=== PATIENT | female | born 1970 | race African-American/Black ===

== ENCOUNTER 2017-03-20 15:04 | Emergency (ER) | payer OTHER ==
--- NOTE | 2017-03-20 16:07 | ER Document Report ---
ED Medical Screen (RME) - General Mode of Arrival: Ambulatory Information source: Patient TRAVEL OUTSIDE OF THE [place] IN LAST 30 DAYS: No <CHUCKY GALDAMEZ - Last Filed: 03/20/17 16:00> <ASHLEIGH YARBROUGH - Last Filed: 03/21/17 14:41> - General Chief Complaint: Abdominal Pain Stated Complaint: PAIN ON RIGHT SIDE Time Seen by Provider: 03/20/17 16:00 Notes: 46 yo female presents to ed for pain in the right upper abdomen for the past 5 day intermittently, sharp at times dull cramping and moves form side to side and upper and down the abdomen. Nausea no vomiting. 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 This patient was assessed in PIT and will be seen by another provider for compete H&P and treatment. (CHUCKY GALDAMEZ) - Related Data Allergies/Adverse Reactions: hydrocodone bitartrate [From Vicodin] Allergy (Verified 03/20/17 16:14) Penicillins Allergy (Verified 03/20/17 16:14) clopidogrel bisulfate [From Plavix] Adverse Reaction (Verified 03/20/17 16:14) "liver failure" Past Medical History - Past Medical History Cardiac Medical History: Reports: Hx Heart Attack - 2007, Hx Hypertension Endocrine Medical History: Reports: Hx Diabetes Mellitus Type 2 Renal/ Medical History: Denies: Hx Peritoneal Dialysis Past Surgical History: Reports: Hx Thyroid Surgery <CHUCKY GALDAMEZ - Last Filed: 03/20/17 16:00> Course - Laboratory Result Diagrams: 03/20/17 16:51 03/20/17 16:51 <ASHLEIGH YARBROUGH - Last Filed: 03/21/17 14:41> - Vital Signs Vital signs: Temp Pulse Resp BP Pulse Ox 97.9 F 87 16 110/76 98 03/20/17 23:12 03/20/17 23:12 03/20/17 23:12 03/20/17 23:12 03/20/17 23:12 - Laboratory Laboratory results interpreted by me: 03/20/17 03/20/17 03/20/17 16:51 16:51 16:51 WBC 11.0 H ALT 56 H Creatine Kinase 154 H Doctor's Discharge <CHUCKY GALDAMEZ - Last Filed: 03/20/17 16:00> <ASHLEIGH YARBROUGH - Last Filed: 03/21/17 14:41> - Discharge Clinical Impression: Abdominal pain, Gallbladder disease Condition: Stable Disposition: HOME, SELF-CARE Instructions: Gallbladder Disease ([facility]) Prescriptions: Oxycodone HCl/Acetaminophen [Percocet 5-325 mg Tablet] 1 - 2 tab PO Q4H PRN #15 tablet PRN Reason: Promethazine HCl [Phenergan 25 mg Tablet] 1 - 2 tab PO Q6H PRN #15 tablet PRN Reason: Referrals: CORINNE AMIN MD [Primary Care Provider] - Follow up as needed LISSETT AUGUSTE MD [ACTIVE STAFF] - Follow up tomorrow
[2017-03-20 17:13] LABS: ABSOLUTE EOSINOPHILS # (AUTO) 0.1 10^3/uL (0.0-0.6); ABSOLUTE LYMPHOCYTES (AUTO) 3.5 10^3/uL (0.5-4.7); ABSOLUTE MONOCYTES (AUTO) 0.8 10^3/uL (0.1-1.4); ABSOLUTE NEUT (AUTO) 6.7 10^3/uL (1.7-8.2); BASOPHILS % (AUTO) 0.3 % (0-2); EOSINOPHILS % (AUTO) 0.5 % (0-6); HEMATOCRIT 44.5 % (36.0-47.0); HEMOGLOBIN 14.8 g/dL (12.0-15.5); HGB HCT DIFFERENCE -0.1; LYMPHOCYTES % (AUTO) 31.5 % (13-45); MEAN CORPUSCULAR HEMOGLOBIN 31.1 pg (27.0-33.4); MEAN CORPUSCULAR HGB CONC 33.2 g/dL (32.0-36.0); MEAN CORPUSCULAR VOLUME 94 fl (80-97); MONOCYTES % (AUTO) 7.1 % (3-13); RED BLOOD COUNT 4.75 10^6/uL (3.72-5.28); RED CELL DISTRIBUTION WIDTH 13.3 % (11.5-14.0); SEGMENTED NEUTROPHILS % (AUTO) 60.6 % (42-78)
[2017-03-20 17:19] LABS: APPEARANCE,URINE CLEAR; BILIRUBIN,URINE NEGATIVE (NEGATIVE); GLUCOSE, URINE NEGATIVE (NEGATIVE); KETONES,URINE NEGATIVE (NEGATIVE); LEUKOCYTE ESTERASE,URINE NEGATIVE (NEGATIVE); NITRITE,URINE NEGATIVE (NEGATIVE); PROTEIN,URINE NEGATIVE (NEGATIVE); UROBILINOGEN,URINE NEGATIVE mg/dL (<2.0)
[2017-03-20 17:28] LABS: BACTERIA,URINE 2+ /HPF
[2017-03-20 17:30] LABS: ALANINE AMINOTRANSFERASE 56 U/L (9-52); ALBUMIN 4.4 g/dL (3.5-5.0); ALKALINE PHOSPHATASE 110 U/L (38-126); ANION GAP 14 (5-19); ASPARTATE AMINO TRANSFERASE 36 U/L (14-36); BILIRUBIN,DIRECT 0.3 mg/dL (0.0-0.4); BILIRUBIN,TOTAL 0.6 mg/dL (0.2-1.3); BLOOD UREA NITROGEN 8 mg/dL (7-20); CALCIUM 9.5 mg/dL (8.4-10.2); CARBON DIOXIDE 23 mmol/L (22-30); CHLORIDE 106 mmol/L (98-107); CREATININE RESULT 0.82 mg/dL (0.52-1.25); GLUCOSE 109 mg/dL (75-110); LIPASE 114.5 U/L (23-300); POTASSIUM 4.3 mmol/L (3.6-5.0); SODIUM 143.1 mmol/L (137-145)
[2017-03-20] MEDS ORDERED: OXYCODONE HCL IR 5 MG TABLET PO ONE (18:14)
[2017-03-20] MEDS ORDERED: ONDANSETRON 4 MG TAB.RAPDIS PO ONE (18:14)
--- NOTE | 2017-03-20 18:55 | ER Document Report ---
ED General - General Chief Complaint: Abdominal Pain Stated Complaint: PAIN ON RIGHT SIDE Time Seen by Provider: 03/20/17 16:00 Mode of Arrival: Ambulatory Information source: Patient Notes: 46-year-old female presents with complaints of right upper quadrant abdominal pain of one week duration associated with nausea. Patient last ate yesterday denies any fevers or chills TRAVEL OUTSIDE OF THE [place] IN LAST 30 DAYS: No - HPI Onset: Last week Onset/Duration: Persistent Quality of pain: Achy Severity: Mild Pain Level: 1 Associated symptoms: Nausea Exacerbated by: Denies Relieved by: Denies Similar symptoms previously: No Recently seen / treated by doctor: No - Related Data Allergies/Adverse Reactions: hydrocodone bitartrate [From Vicodin] Allergy (Verified 03/20/17 16:14) Penicillins Allergy (Verified 03/20/17 16:14) clopidogrel bisulfate [From Plavix] Adverse Reaction (Verified 03/20/17 16:14) "liver failure" Past Medical History - General Information source: Patient - Social History Smoking Status: Never Smoker Cigarette use (# per day): No Chew tobacco use (# tins/day): No Smoking Education Provided: No Family History: Reviewed & Not Pertinent Patient has suicidal ideation: No Patient has homicidal ideation: No - Past Medical History Cardiac Medical History: Reports: Hx Heart Attack - 2007, Hx Hypertension Endocrine Medical History: Reports: Hx Diabetes Mellitus Type 2 Renal/ Medical History: Denies: Hx Peritoneal Dialysis Past Surgical History: Reports: Hx Hysterectomy, Hx Thyroid Surgery Review of Systems - Review of Systems Notes: REVIEW OF SYSTEMS: CONSTITUTIONAL : Denies fever, chills, or sweats. Denies recent illness. EENT: Denies eye, ear, throat, or mouth pain or symptoms. Denies nasal or sinus congestion or discharge. Denies throat, tongue, or mouth swelling or difficulty swallowing. CARDIOVASCULAR: Denies chest pain. Denies palpitations or racing or irregular heart beat. Denies ankle edema. RESPIRATORY: Denies cough, cold, or chest congestion. Denies shortness of breath, difficulty breathing, or wheezing. GASTROINTESTINAL: Admits to abdominal pain nausea GENITOURINARY: Denies difficulty urinating, painful urination, burning, frequency, blood in urine, or discharge. FEMALE GENITOURINARY: Denies vaginal bleeding, heavy or abnormal periods, irregular periods. Denies vaginal discharge or odor. MUSCULOSKELETAL: Denies back or neck pain or stiffness. Denies joint pain or swelling. SKIN: Denies rash, lesions or sores. HEMATOLOGIC : Denies easy bruising or bleeding. LYMPHATIC: Denies swollen, enlarged glands. NEUROLOGICAL: Denies confusion or altered mental status. Denies passing out or loss of consciousness. Denies dizziness or lightheadedness. Denies headache. Denies weakness or paralysis or loss of use of either side. Denies problems with gait or speech. Denies sensory loss, numbness, or tingling. Denies seizures. PSYCHIATRIC: Denies anxiety or stress. Denies depression, suicidal ideation, or homicidal ideation. ALL OTHER SYSTEMS REVIEWED AND NEGATIVE. PHYSICAL EXAMINATION: GENERAL: Well-appearing, well-nourished and in no acute distress. HEAD: Atraumatic, normocephalic. EYES: Pupils equal round and reactive to light, extraocular movements intact, conjunctiva are normal. ENT: Nares patent, oropharynx clear without exudates. Moist mucous membranes. NECK: Normal range of motion, supple without lymphadenopathy LUNGS: Breath sounds clear to auscultation bilaterally and equal. No wheezes rales or rhonchi. HEART: Regular rate and rhythm without murmurs ABDOMEN: Soft, tender in the right upper quadrant no rebound or guarding Female : deferred Musculoskeletal: Normal range of motion, no pitting or edema. No cyanosis. NEUROLOGICAL: Cranial nerves grossly intact. Normal speech, normal gait. Normal sensory, motor exams PSYCH: Normal mood, normal affect. SKIN: Warm, Dry, normal turgor, no rashes or lesions noted. Dictation was performed using [employer] (formerly [employer]) voice recognition software Physical Exam - Vital signs Vitals: Temp Pulse Resp BP Pulse Ox 98.2 F 108 H 18 127/96 H 98 03/20/17 15:14 03/20/17 15:14 03/20/17 15:14 03/20/17 15:14 03/20/17 15:14 Course - Re-evaluation Re-evalutation: 03/20/17 18:55 Ultrasound is pending 03/20/17 20:31 Ultrasound noted no stones or gallbladder disease 03/20/17 20:43 Dr. Morales does not believe this is gallbladder related, Dr. Camarena defers on admission CT ordered 03/21/17 02:39 CT noted no significant abnormality, patient wishes to be discharged, I will discharge her with understand that she follow-up with a surgeon for possible gallbladder disease After performing a Medical Screening Examination, I estimate there is LOW risk for ACUTE APPENDICITIS, BOWEL OBSTRUCTION, ACUTE CHOLECYSTITIS, PERFORATED DIVERTICULITIS, INCARCERATED HERNIA, PANCREATITIS, PELVIC INFLAMMATORY DISEASE, PERFORATED ULCER, ECTOPIC , or TUBO-OVARIAN ABSCESS, thus I consider the discharge disposition reasonable. Also, there is no evidence or peritonitis , sepsis, or toxicity. I have reevaluated this patient multiple times and no significant life threatening changes are noted. The patient and I have discussed the diagnosis and risks, and we agree with discharging home with close follow-up with the understanding that symptoms and presentations can change. We also discussed returning to the Emergency Department immediately if new or worsening symptoms occur. We have discussed the symptoms which are most concerning (e.g., bloody stool, fever, changing or worsening pain, vomiting) that necessitate immediate return. - Vital Signs Vital signs: Temp Pulse Resp BP Pulse Ox 97.9 F 87 16 110/76 98 03/20/17 23:12 03/20/17 23:12 03/20/17 23:12 03/20/17 23:12 03/20/17 23:12 - Laboratory Result Diagrams: 03/20/17 16:51 03/20/17 16:51 Laboratory results interpreted by me: 03/20/17 03/20/17 03/20/17 16:51 16:51 16:51 WBC 11.0 H ALT 56 H Creatine Kinase 154 H - Diagnostic Test Radiology reviewed: Image reviewed, Reports reviewed - No acute abnormality noted on ultrasound or CT Discharge - Discharge Clinical Impression: Disorder of gallbladder Abdominal pain Qualifiers: Abdominal location: right upper quadrant Qualified Code(s): R10.11 - Right upper quadrant pain Condition: Stable Disposition: HOME, SELF-CARE Instructions: Gallbladder Disease ([facility]) Prescriptions: Oxycodone HCl/Acetaminophen [Percocet 5-325 mg Tablet] 1 - 2 tab PO Q4H PRN #15 tablet PRN Reason: Promethazine HCl [Phenergan 25 mg Tablet] 1 - 2 tab PO Q6H PRN #15 tablet PRN Reason: Referrals: CORINNE AMIN MD [Primary Care Provider] - Follow up as needed LISSETT AUGUSTE MD [ACTIVE STAFF] - Follow up tomorrow
--- NOTE | 2017-03-20 19:51 | RADIOLOGY REPORT (SQ) ---
EXAM DESCRIPTION: U/S ABDOMEN LIMITED W/O DOP COMPLETED DATE/TIME: 03/20/2017 7:06 pm REASON FOR STUDY: RUQ pain COMPARISON: None. TECHNIQUE: Dynamic and static grayscale images acquired of the abdomen and recorded on PACS. Additio nal selected color Doppler and spectral images recorded. LIMITATIONS: None. FINDINGS: PANCREAS: No masses. Visualized pancreatic duct normal caliber. LIVER: No masses. Echotexture normal. LIVER VASCULATURE: Normal directional flow of the main portal vein and hepatic veins. GALLBLADDER: No stones. Normal wall thickness. No pericholecystic fluid. ULTRASOUND-DETECTED TOLBERT'S SIGN: Negative. INTRAHEPATIC DUCTS AND COMMON DUCT: CBD and intrahepatic ducts normal caliber. No filling defects. INFERIOR VENA CAVA: Normal flow. AORTA: No aneurysm. RIGHT KIDNEY: Normal size. Normal echogenicity. No solid or suspicious masses. No hydronephrosis. No calcifications. PERITONEAL AND RIGHT PLEURAL SPACE: No ascites or effusions. OTHER: No other significant findings. IMPRESSION: No abnormality identified. TECHNICAL DOCUMENTATION: JOB ID: [id number] [employer]- All Rights Reserved
[2017-03-20] MEDS ORDERED: NORMAL SALINE 1000 ML 1,000 ML IV ONE (20:32)
--- NOTE | 2017-03-20 22:19 | RADIOLOGY REPORT (SQ) ---
EXAM DESCRIPTION: CT ABD/PELVIS NO ORAL OR IV COMPLETED DATE/TIME: 03/20/2017 9:29 pm REASON FOR STUDY: abd pain COMPARISON: 10/16/2015 TECHNIQUE: CT scan of the abdomen and pelvis performed without intravenous or oral contrast. Images reviewed with lung, soft tissue, and bone windows. Reconstructed coronal and sagittal MPR images revi ewed. All images stored on PACS. All CT scanners at this facility use dose modulation, iterative reconstruction, and/or weight based d osing when appropriate to reduce radiation dose to as low as reasonably achievable (ALARA). [facility]: Dose Right [facility]: CareDose [facility]: Dose Right [facility]: Teradose 4D [facility]: [employer]School RADIATION DOSE: 17.25mGy. LIMITATIONS: None. FINDINGS: LOWER CHEST: No significant findings. No nodules or infiltrates. NON-CONTRASTED LIVER, SPLEEN, ADRENALS: Similar low-density nodularity of the adrenal glands, left gr eater than right. Evaluation limited by lack of IV contrast. No acute findings. PANCREAS: No masses. No peripancreatic inflammatory changes. GALLBLADDER: No identified stones by CT criteria. No inflammatory changes to suggest cholecystitis. RIGHT KIDNEY AND URETER: No suspicious masses. Assessment limited by lack of IV contrast. No signif icant calcifications. No hydronephrosis or hydroureter. LEFT KIDNEY AND URETER: No suspicious masses. Assessment limited by lack of IV contrast. 3 mm lower pole parenchymal stone. No hydronephrosis or hydroureter. AORTA AND RETROPERITONEUM: No aneurysm. No retroperitoneal masses or adenopathy. BOWEL AND PERITONEAL CAVITY: No obvious masses or inflammatory changes. No free fluid. APPENDIX: Normal. PELVIS, BLADDER, AND ABDOMINAL WALL:Prior hysterectomy. No free fluid. Bladder normal. BONES: No acute findings. OTHER: No other significant finding. IMPRESSION: NO ACUTE PROCESS IN THE ABDOMEN OR PELVIS. TECHNICAL DOCUMENTATION: JOB ID: [id number] Quality ID # [id number]: Final reports with documentation of one or more dose reduction techniques (e.g., Au tomated exposure control, adjustment of the mA and/or kV according to patient size, use of iterative reconstruction technique) 2010 [employer]- All Rights Reserved
[2017-03-20 23:28] VITALS: BP 110/76
[2017-03-20 23:55] LABS: CREATINE KINASE MB 1.06 ng/mL (<4.55)
[2017-03-20 23:56] LABS: TROPONIN I < 0.012 ng/mL
--- NOTE | 2017-03-21 00:14 | CONSULTATION REPORT E ---
Consultation Report NAME: CLAUDETTE EAST : 1970 AGE: 46Y DATE: 03/20/2017 TO: GUSTAVO CARDOZA M.D. FROM: TALHA ROBERTSON Requesting Physician REASON FOR CONSULTATION: Patient with right upper quadrant and epigastric pains with nausea. HISTORY OF PRESENT ILLNESS: This is a 46-year-old female who has been complaining of nausea and right upper quadrant and epigastric pains. She claims the pains are more from "*------*." She has been nauseated. She had an ultrasound of the gallbladder done in the ER which showed no gallstones and no thickened gallbladder wall. I examined her at that time and the physical findings showed mild tenderness in the right upper quadrant and epigastric area on deep palpation. The rest of the abdomen is soft and nontender. She then had a CAT scan of the abdomen which was essentially normal. She was then able to tolerate liquids and subsequently discharged from the emergency room to be followed up in the surgical clinic. FINAL IMPRESSION: Abdominal pain, etiology possibly due to gastroenteritis, rule out cardiac. The patient had a history of OK at age 36 and had coronary stents placed. She is on Plavix. Cardiac jimenez, she was cleared by the ER physician. DICTATING PHYSICIAN: GUSTAVO CARDOZA M.D. [id number] PHY#: [id number] ID: [id number] JOB#: [id number] ACCT: [id number] cc:GUSTAVO CARDOZA M.D. >
== END 2017-03-20 23:12 | disposition home or self-care (01) ==
LOC: ER 15:04
DX: R10.11 Right upper quadrant pain (principal); K82.9 Disease of gallbladder, unspecified; R11.0 Nausea; I10 Essential (primary) hypertension; E11.9 Type 2 diabetes mellitus without complications; Z88.0 Allergy status to penicillin; Z88.6 Allergy status to analgesic agent; Z90.710 Acquired absence of both cervix and uterus; Z79.02 Long term (current) use of antithrombotics/antiplatelets; I25.2 Old myocardial infarction
CPT/HCPCS: 99284; 36415; 82553; 82550; 83690; 85025; 80053; 81001; 84484; 76705; 74176; S0119

== ENCOUNTER → 2017-06-24 | Outpatient (CLI) | payer OTHER ==
--- NOTE | 2017-06-24 14:55 | RADIOLOGY REPORT (SQ) ---
EXAM DESCRIPTION: NM HIDA SCAN WITH CCK COMPLETED DATE/TIME: 06/24/2017 2:20 pm REASON FOR STUDY: EPIGASTRIC PAIN (R10.13) R10.13 EPIGASTRIC PAIN COMPARISON: None. RADIONUCLIDE AND DOSE: DOSAGE RADIONUCLIDE: 5 millicuries Tc99m Mebrofenin. DOSAGE CCK: 2 micrograms. DOSAGE MORPHINE: Not required. The route of agent administration: Intravenous TECHNIQUE: Serial imaging right upper quadrant up to 60 minutes following injection of radionuclide. CCK injected after gallbladder visualized. LIMITATIONS: None. FINDINGS: LIVER: Normal visualization without areas of photopenia. INTRAHEPATIC BILE DUCTS: Normal size and no delay in visualization. COMMON BILE DUCT: Normal without dilatation. GALLBLADDER: Normal visualization. Calculated ejection fraction of 29%. Normal range is greater th an 35%. PHYSICAL RESPONSE: Patients presenting complaint was not reproduced. OTHER: No other significant finding. IMPRESSION: Mildly abnormal gallbladder ejection fraction of 29% where 35% or greater is considered normal. TECHNICAL DOCUMENTATION: JOB ID: [id number] [email or web address]- All Rights Reserved
== END ==
LOC: RAD 12:09
PROVIDERS: ATTEND Internal Medicine Gastroenterology
DX: R10.13 Epigastric pain (principal)
CPT/HCPCS: 78227; A9537; Q9969; J2805

== ENCOUNTER 2019-03-10 20:36 | Emergency (ER) | payer OTHER ==
[2019-03-10] MEDS ORDERED: ACETAMINOPHEN 325 MG TABLET PO ONE (21:46)
--- NOTE | 2019-03-10 21:49 | ER Document Report ---
ED Breast Problem - General Chief Complaint: Breast Lump Stated Complaint: BREAST PAIN Time Seen by Provider: 03/10/19 21:40 Primary Care Provider: SILVER GIL MD [Primary Care Provider] - Follow up as needed Notes: Patient is a 48-year-old female presents the emergency department with a chief complaint of left breast pain and redness. She states that her pain started yesterday and she noticed some redness that was only a pea-sized amount and today she states that the size has tripled. The redness is around her nipple. She also has complaints of chest pain, and she has a history of an MA in the past. She states that the pain below her breast feels similar to her MA she had before. Exam: Erythema noted around the areola. I have greeted and performed a rapid initial assessment of this patient. A comprehensive ED assessment and evaluation of the patient, analysis of test results and completion of medical decision making process will be conducted by an additional ED providers. TRAVEL OUTSIDE OF THE [place] IN LAST 30 DAYS: No - Related Data Allergies/Adverse Reactions: hydrocodone bitartrate [From Vicodin] Allergy (Verified 03/20/17 16:14) Penicillins Allergy (Verified 03/20/17 16:14) clopidogrel bisulfate [From Plavix] Adverse Reaction (Verified 03/20/17 16:14) "liver failure" Past Medical History - Social History Smoking Status: Current Every Day Smoker Family History: Reviewed & Not Pertinent Patient has suicidal ideation: No Patient has homicidal ideation: No - Past Medical History Cardiac Medical History: Reports: Hx Heart Attack - 2007, Hx Hypertension Endocrine Medical History: Reports: Hx Diabetes Mellitus Type 2 Renal/ Medical History: Denies: Hx Peritoneal Dialysis Past Surgical History: Reports: Hx Hysterectomy, Hx Thyroid Surgery Physical Exam - Vital signs Vitals: Temp Pulse Resp BP Pulse Ox 98.1 F 102 H 16 140/86 H 98 03/10/19 20:55 03/10/19 20:55 03/10/19 20:55 03/10/19 20:55 03/10/19 20:55 Course - Vital Signs Vital signs: Temp Pulse Resp BP Pulse Ox 98.1 F 102 H 16 140/86 H 98 03/10/19 20:55 03/10/19 20:55 03/10/19 20:55 03/10/19 20:55 03/10/19 20:55 Discharge - Discharge Referrals: SILVER GIL MD [Primary Care Provider] - Follow up as needed
--- NOTE | 2019-03-10 21:50 | ER Document Report ---
ED Medical Screen (RME) - General Chief Complaint: Breast Lump Stated Complaint: BREAST PAIN Time Seen by Provider: 03/10/19 21:40 Primary Care Provider: SILVER GIL MD [Primary Care Provider] - Follow up as needed Notes: Patient is a 48-year-old female presents the emergency department with a chief complaint of left breast pain and redness. She states that her pain started yesterday and she noticed some redness that was only a pea-sized amount and today she states that the size has tripled. The redness is around her nipple. She also has complaints of chest pain, and she has a history of an AL in the past. She states that the pain below her breast feels similar to her AL she had before. Exam: Erythema noted around the areola. I have greeted and performed a rapid initial assessment of this patient. A comprehensive ED assessment and evaluation of the patient, analysis of test results and completion of medical decision making process will be conducted by an additional ED providers. TRAVEL OUTSIDE OF THE [place] IN LAST 30 DAYS: No - Related Data Allergies/Adverse Reactions: hydrocodone bitartrate [From Vicodin] Allergy (Verified 03/20/17 16:14) Penicillins Allergy (Verified 03/20/17 16:14) clopidogrel bisulfate [From Plavix] Adverse Reaction (Verified 03/20/17 16:14) "liver failure" Past Medical History - Past Medical History Cardiac Medical History: Reports: Hx Heart Attack - 2007, Hx Hypertension Endocrine Medical History: Reports: Hx Diabetes Mellitus Type 2 Renal/ Medical History: Denies: Hx Peritoneal Dialysis Past Surgical History: Reports: Hx Hysterectomy, Hx Thyroid Surgery Physical Exam - Vital signs Vitals: Temp Pulse Resp BP Pulse Ox 98.1 F 102 H 16 140/86 H 98 03/10/19 20:55 03/10/19 20:55 03/10/19 20:55 03/10/19 20:55 03/10/19 20:55 Course - Vital Signs Vital signs: Temp Pulse Resp BP Pulse Ox 98.1 F 102 H 16 140/86 H 98 03/10/19 20:55 03/10/19 20:55 03/10/19 20:55 03/10/19 20:55 03/10/19 20:55 Doctor's Discharge - Discharge Referrals: SILVER GIL MD [Primary Care Provider] - Follow up as needed
--- NOTE | 2019-03-10 22:46 | RADIOLOGY REPORT (SQ) ---
XR CHEST 1 VIEW HISTORY: Chest pain. COMPARISON: 10/15/2015 FINDINGS: The heart size is within normal limits. No consolidation, pleural effusion, or pneumothorax is seen. There are no acute bony findings. IMPRESSION: No evidence of acute cardiopulmonary disease.
[2019-03-10 23:08] LABS: ABSOLUTE BASOPHILS # (AUTO) 0.1 10^3/uL (0.0-0.2); ABSOLUTE EOSINOPHILS # (AUTO) 0.1 10^3/uL (0.0-0.6); ABSOLUTE LYMPHOCYTES (AUTO) 2.5 10^3/uL (0.5-4.7); ABSOLUTE MONOCYTES (AUTO) 1.2 10^3/uL (0.1-1.4); ABSOLUTE NEUT (AUTO) 7.9 10^3/uL (1.7-8.2); BASOPHILS % (AUTO) 0.6 % (0-2); EOSINOPHILS % (AUTO) 0.8 % (0-6); HEMATOCRIT 40.5 % (36.0-47.0); HEMOGLOBIN 13.8 g/dL (12.0-15.5); LYMPHOCYTES % (AUTO) 21.5 % (13-45); MEAN CORPUSCULAR HEMOGLOBIN 31.5 pg (27.0-33.4); MEAN CORPUSCULAR VOLUME 93 fl (80-97); MONOCYTES % (AUTO) 10.2 % (3-13); PLATELET COUNT 248 10^3/uL (150-450); RED BLOOD COUNT 4.37 10^6/uL (3.72-5.28); RED CELL DISTRIBUTION WIDTH 13.3 % (11.5-14.0); SEGMENTED NEUTROPHILS % (AUTO) 66.9 % (42-78); TOTAL CELLS COUNTED % (AUTO) 100 %; WHITE BLOOD COUNT 11.8 10^3/uL (4.0-10.5)
[2019-03-10 23:28] LABS: ALANINE AMINOTRANSFERASE 61 U/L (9-52); ALKALINE PHOSPHATASE 108 U/L (38-126); ANION GAP 7 (5-19); ASPARTATE AMINO TRANSFERASE 36 U/L (14-36); BILIRUBIN,DIRECT 0.3 mg/dL (0.0-0.4); BILIRUBIN,TOTAL 0.5 mg/dL (0.2-1.3); BLOOD UREA NITROGEN 11 mg/dL (7-20); CALCIUM 9.8 mg/dL (8.4-10.2); CARBON DIOXIDE 28 mmol/L (22-30); CHLORIDE 107 mmol/L (98-107); CREATINE KINASE 65 U/L (30-135); GLUCOSE 123 mg/dL (75-110); POTASSIUM 3.9 mmol/L (3.6-5.0); SODIUM 141.7 mmol/L (137-145)
[2019-03-10 23:40] LABS: CREATINE KINASE MB 0.46 ng/mL (<4.55); TROPONIN I < 0.012 ng/mL
--- NOTE | 2019-03-11 00:22 | ER Document Report ---
ED General - General Chief Complaint: Breast Lump Stated Complaint: BREAST PAIN Time Seen by Provider: 03/10/19 21:40 Primary Care Provider: LISSETT AUGUSTE MD [ACTIVE STAFF] - Follow up in 3-5 days Notes: Patient is a 48-year-old female that presents to the emergency department for chief complaint of breast pain and swelling. Patient reports that she noticed swelling in her breast that was the size of a pimple 2 days ago, that is gotten significantly worse more swollen under her left areole. She describes it as a 9 out of 10 pain, is hard to walk because any brushing up against it makes it significantly worse. She denies any any fevers, chills, night sweats, shortness of breath, difficulty breathing, nausea, vomiting or abdominal pain. She states the pain is radiating deep in her breast, and has become concerning for her. Past Medical History: Diabetes mellitus, hypertension, hyperlipidemia, CAD Past Surgical History: Hysterectomy Social History: Denies current tobacco, alcohol or drug use. Family History: Reviewed and noncontributory for presenting illness Allergies: Reviewed, see documented allergy list. REVIEW OF SYSTEMS: Other than noted above, the 12 point review of systems was reviewed with the patient and were negative, all pertinent findings are included in the HPI. PHYSICAL EXAMINATION: Vital signs reviewed, nursing noted reviewed. GENERAL: Well-appearing, well-nourished and in no acute distress. HEAD: Atraumatic, normocephalic. EYES: Eyes appear normal, extraocular movements intact, sclera anicteric, conjunctiva are normal. ENT: nares patent, oropharynx clear without exudates. Moist mucous membranes. NECK: Normal range of motion, supple without lymphadenopathy LUNGS: Breath sounds clear to auscultation bilaterally and equal. No wheezes rales or rhonchi. HEART: Regular rate and rhythm without murmurs Breast exam: Patient's left breast was examined at bedside, with ceramic research engineer present, she had fullness and tenderness mainly on the superior aspect of the l eft areola, with mild erythema, this was examined under ultrasound demonstrated a large pocket of fluid, concerning for abscess. ABDOMEN: Soft, nontender, normoactive bowel sounds. No rebound, guarding, or rigidity. No masses appreciated. EXTREMITIES: Nontender, good range of motion, no pitting or edema. NEUROLOGICAL: No focal neurological deficits. Moves all extremities spontaneously Motor and sensory grossly intact on exam. PSYCH: Normal mood, normal affect. SKIN: Warm, Dry, normal turgor, no rashes or lesions noted on exposed skin TRAVEL OUTSIDE OF THE [place] IN LAST 30 DAYS: No - Related Data Allergies/Adverse Reactions: hydrocodone bitartrate [From Vicodin] Allergy (Verified 03/20/17 16:14) Penicillins Allergy (Verified 03/20/17 16:14) clopidogrel bisulfate [From Plavix] Adverse Reaction (Verified 03/20/17 16:14) "liver failure" Past Medical History - Social History Smoking Status: Current Every Day Smoker Family History: Reviewed & Not Pertinent Patient has suicidal ideation: No Patient has homicidal ideation: No - Past Medical History Cardiac Medical History: Reports: Hx Heart Attack - 2007, Hx Hypertension Endocrine Medical History: Reports: Hx Diabetes Mellitus Type 2 Renal/ Medical History: Denies: Hx Peritoneal Dialysis Past Surgical History: Reports: Hx Hysterectomy, Hx Thyroid Surgery Physical Exam - Vital signs Vitals: Temp Pulse Resp BP Pulse Ox 98.1 F 102 H 16 140/86 H 98 03/10/19 20:55 03/10/19 20:55 03/10/19 20:55 03/10/19 20:55 03/10/19 20:55 Course - Re-evaluation Re-evalutation: Patient seen and examined vital signs reviewed. Laboratory data and/or imaging were ordered as appropriate for the patient's presenting symptoms and complaint, with consideration of any critical or life threatening conditions that may be associated with their obtained history and exam as noted above. Patient was treated with I&D, she was given mild procedural sedation as noted, tolerated well, and I&D was performed by Dr. Bridges with surgery, who came to see the patient, we examined her abscess under ultrasound, he performed procedure as noted in his dictation note, with a curvilinear incision along the superior aspect of the patient's left areola, expelled purulent fluid, culture obtained, patient given clindamycin and, and will follow-up in his office, for w ound inspection, and packing instructions. The patient was re-evaluated and was stable and improved, monitored post sedating medications. And did well Evaluation was most consistent with subareolar abscess Results were discussed with the patient at this point, after careful consideration I feel that that patient can be discharged from the emergency department, the patient was educated treatments and reasons to return to the emergency department based on their presumed diagnosis as noted above, they were advised to followup with a primary care physician in 2-3 days. Patient was agreeable to plan of care. *Note is created using voice recognition software and may contain spelling, syntax or grammatical errors. Laboratory 03/10/19 03/10/19 03/10/19 22:55 22:55 22:55 WBC 11.8 H RBC 4.37 Hgb 13.8 Hct 40.5 MCV 93 MCH 31.5 MCHC 34.0 RDW 13.3 Plt Count 248 Seg Neutrophils % 66.9 Lymphocytes % 21.5 Monocytes % 10.2 Eosinophils % 0.8 Basophils % 0.6 Absolute Neutrophils 7.9 Absolute Lymphocytes 2.5 Absolute Monocytes 1.2 Absolute Eosinophils 0.1 Absolute Basophils 0.1 Sodium 141.7 Potassium 3.9 Chloride 107 Carbon Dioxide 28 Anion Gap 7 BUN 11 Creatinine 0.56 Est GFR ( Amer) > 60 Est GFR (Non-Af Amer) > 60 Glucose 123 H Calcium 9.8 Total Bilirubin 0.5 Direct Bilirubin 0.3 Neonat Total Bilirubin Not Reportable Neonat Direct Bilirubin Not Reportable Neonat Indirect Bili Not Reportable AST 36 ALT 61 H Alkaline Phosphatase 108 Creatine Kinase 65 CK-MB (CK-2) 0.46 Troponin I < 0.012 Total Protein 7.0 Albumin 4.0 Chest X-Ray 03/10/19 21:45 IMPRESSION: No evidence of acute cardiopulmonary disease. - Vital Signs Vital signs: Temp Pulse Resp BP Pulse Ox 98.7 F 102 H 16 150/90 H 87 L 03/11/19 02:37 03/10/19 20:55 03/11/19 02:00 03/11/19 01:51 03/11/19 02:00 - Laboratory Result Diagrams: 03/10/19 22:55 03/10/19 22:55 Laboratory results interpreted by me: 03/10/19 03/10/19 22:55 22:55 WBC 11.8 H Glucose 123 H ALT 61 H Procedures - Conscious Sedation Conscious sedation Prior complications: Procedural sedation Normal healthy pt.: P1. - ASA Classification Airway Evaluation: Normal anatomy Mallampati Classification: Class 1 Used during procedure: Suction available, IV access obtained, Pulse ox on pt., weight yardage checker on pt. Medications administered: Versed - 4mg, Fentanyl - 100mcg Reversal agents: None I personally performed/intraservice time: Sedation, 30 min or less Complications: No Notes: Patient was mildly sedated with the above medications, she was conversant throughout the entire procedure, no complications, tolerated well. Discharge - Discharge Clinical Impression: Breast abscess Condition: Stable Disposition: HOME, SELF-CARE Instructions: Post Incision and Drainage Additional Instructions: Please follow-up with Dr. Auguste, afternoon today in the office. Patient your prescriptions for antibiotics in the morning, you may take the pain medication only for breakthrough pain, every 6-8 hours. Prescriptions: RX: Clindamycin HCl 300 mg PO TID #21 capsule RX: Tramadol HCl [Ultram] 50 mg PO Q6H PRN #8 tablet PRN Reason: general pain Referrals: LISSETT AUGUSTE MD [ACTIVE STAFF] - Follow up in 3-5 days
[2019-03-11] MEDS ORDERED: MIDAZOLAM 2 MG/2 ML INJ IV ONE (00:36)
[2019-03-11] MEDS ORDERED: FENTANYL CITRATE INJ/PF 100 MCG/2 ML AMPUL IV ONE (00:38)
[2019-03-11] MEDS ORDERED: LIDOCAINE 1% INJ-PF (10 MG/ML) 30 ML SDV ONE (00:58)
[2019-03-11] MEDS ORDERED: CLINDAMYCIN HCL 150 MG CAPSULE PO ONE (01:14)
--- NOTE | 2019-03-11 01:22 | Operative Report ---
Operative Report DATE OF SURGERY: 03/11/19 PREOPERATIVE DIAGNOSIS: 1. Left breast abscess. 2. Smoker. 3. Diabetes rich litus POSTOPERATIVE DIAGNOSIS: Same OPERATION: 1. Focused ultrasound left breast. 2. Excisional drainage of the left breast abscess, irrigation and packing SURGEON: LISSETT BULL ANESTHESIA: Moderate Sedation TISSUE REMOVED OR ALTERED: Skin and pus COMPLICATIONS: None ESTIMATED BLOOD LOSS: Scant INTRAOPERATIVE FINDINGS: See below PROCEDURE: The patient was seen in the emergency department at the request of Dr. Velazquez. The left breast was examined and there was an area of tenderness, and swelling of the 12 o'clock position left areolar complex. This area was scanned with a variable frequency linear transducer and found to have a large abscess. Discussed management strategies including percutaneous drainage, bedside drainage, or operative drainage in the main OR. Given the lateness of the hour, and the patient's willingness to perform the procedure under local sedation, we opted for bedside drainage. Surgical timeout was conducted. The left breast was prepped with Betadine, skin anesthetized with 1% plain lidocaine. A curvilinear incision was made at the 12 o'clock position two [address] between the left nipple, and the areolar border. We immediately got back a significant amount of pus. A small segment of skin was removed to create an elliptical hole. All pus was evacuated using a hemostat and gentle pressure. Approximately pus was evacuated. It was sent for culture and sensitivity. Loculations were broken up with gauze. The wound was irrigated with peroxide, then packed with a 10 inch piece of half-inch iodoform packing. 4 x 4's and tape applied. Patient tolerated procedure well. Plan: 1. P.o. Keflex; p.o. [place] for pain; prescription provided 2. Patient to follow-up with Dr. Bull in 24 hours at [facility] for dressing change.
[2019-03-11 02:30] VITALS: BP 150/90
--- NOTE | 2019-03-11 07:31 | EKG REPORT ---
SEVERITY:- NORMAL ECG - SINUS RHYTHM : Confirmed by: Claude Suarez MD 11-Mar-2019 07:30:42
== END 2019-03-11 02:38 | disposition home or self-care (01) ==
LOC: ER 20:36
PROC: 0H9UXZZ (ICD-10-PCS; principal; 2019-03-10)
DX: N61.1 Abscess of the breast and nipple (principal); N64.4 Mastodynia; N63.0 Unspecified lump in unspecified breast; E11.9 Type 2 diabetes mellitus without complications; I10 Essential (primary) hypertension; I25.10 Atherosclerotic heart disease of native coronary artery without angina pectoris; F17.200 Nicotine dependence, unspecified, uncomplicated
CPT/HCPCS: 93005; 99284; 96374; 96375; 36415; 87070; 87205; 82553; 82550; 85025; 87075; 80053; 84484; 71045; 93010; 10060; A6266; J2250; J3010

== ENCOUNTER 2020-09-26 09:31 | Day surgery (SDC) | payer MEDICARE, OTHER ==
[~2020-09-26 09:31] MED LIST: CLINDAMYCIN 300 MG/D5W RTU 300 MG/50 ML RTUPB IV ONE; CLINDAMYCIN 300 MG/D5W RTU 300 MG/50 ML RTUPB IV PRN; FENTANYL CITRATE INJ/PF 100 MCG/2 ML AMPUL ONE; LIDOCAINE 1% INJ-PF (10 MG/ML) 30 ML SDV ONE; MIDAZOLAM 2 MG/2 ML INJ ONE; PROPOFOL INJ 200 MG/20 ML VIAL IV ONE
[2020-09-26] MEDS ORDERED: MEPERIDINE HCL/PF INJ 25 MG/1 ML DISP.SYRIN IV PRN (10:22)
[2020-09-26] MEDS ORDERED: MORPHINE SULFATE 10 MG/ML INJ IV PRN (10:22)
[2020-09-26] MEDS ORDERED: DIPHENHYDRAMINE HCL 50 MG/ML VIAL IV PRN (10:22)
[2020-09-26] MEDS ORDERED: FENTANYL CITRATE INJ/PF 100 MCG/2 ML AMPUL IV PRN ×3 (10:22)
[2020-09-26] MEDS ORDERED: PROMETHAZINE HCL INJ 25 MG/1 ML VIAL IV PRN ×2 (10:22)
--- NOTE | 2020-09-26 11:06 | Discharge Summary ---
Discharge Summary (SDC) - Discharge Final Diagnosis: sebaceous cyst on left and right buttock x 3 Date of Surgery: 09/26/20 Discharge Date: 09/26/20 Condition: Good Treatment or Instructions: WOUND CARE: You may shower 24 hours after surgery and then daily is fine. Leave paper bandaids on the two incisions. If they fall off, you may replace with bandaid. Left buttock has a drain covered by gauze and tape. Remove gauze and tape when showering, allow warm water/soap to wash over wound, and re cover with gauze and tape daily. PAIN MANAGEMENT: You may take Toradol 10 mg one pill by mouth every six hours as needed for pain. Do not take additional NSAIDs with medication. FOLLOW UP: You may follow up at [facility] in 7-10 days. Call clinic sooner with questions/concerns. Prescriptions: Ketorolac Tromethamine [Toradol 10 mg Tablet] 10 mg PO Q6HP PRN #20 tablet PRN Reason: Referrals: TRICE KING MD [Primary Care Provider] - Discharge Diet: As Tolerated Discharge Activity: Activity As Tolerated, Balance Activity w/Rest Report the Following to Your Physician Immediately: Increase in Pain, Yellow Skin, Fever over 101 Degrees, Unusual Bleeding, Redness, Swelling, Warmth, Increased Soreness, Drainage-Green, Drainage-Foul Smelling, Large Clots
[2020-09-26] MEDS ORDERED: OXYCODONE-ACETAMINOPHEN 5-325 MG TABLET PO PRN ×2 (11:08)
--- NOTE | 2020-09-26 11:14 | Operative Report ---
Operative Report DATE OF SURGERY: 09/26/20 PREOPERATIVE DIAGNOSIS: Multiple buttock masses POSTOPERATIVE DIAGNOSIS: Multiple sebaceous cysts OPERATION: 1. Complete excision of sebaceous cyst left upper buttocks. 2. Complete excision of sebaceous cyst right upper buttock. 3. Complete excision of large sebaceous cyst left lower buttock with drain placement SURGEON: LISSETT AUGUSTE 1ST CHEESE COOKER: FELIZ YAÑEZ ANESTHESIA: LMAC TISSUE REMOVED OR ALTERED: Multiple sebaceous cyst, and contents COMPLICATIONS: None ESTIMATED BLOOD LOSS: Scant INTRAOPERATIVE FINDINGS: See below PROCEDURE: Patient was seen in the preop holding area, all 3 sites of interest marked, 2 masses left buttock, 1 mass in the right buttock. The patient was then taken to the main operating room where LMAC anesthesia was induced. Patient was placed in the prone jackknife position. Buttocks spread, prepped and draped in sterile fashion with Betadine Surgical plan and surgical timeout conducted. All 3 sites were anesthetized 1% plain lidocaine. Left upper buttock mass approximately 3 cm in diameter. A transverse elliptical incision was made over the mass approximately 2.5 cm in length. The underlying sebaceous cyst was excised in its entirety. Wound cavity irrigated. Wound closed in layers with 3-0 Vicryl and 4-0 Ethilon suture. Right upper buttock mass approximately 4 cm in diameter anesthetized. An elliptical incision made transversely allowed access to the sebaceous cyst which was multilobulated. It was approximately 2 and half centimeters in depth. The elliptical excision was 3 cm in length. The entire sebaceous cyst and contents were evacuated. Hemostasis was achieved, the wound closed in layers with 3-0 Vicryl and 4 Ethilon suture. The left lower buttock sebaceous cyst was excised in a similar fashion. The elliptical excision was 3-1/2 cm in length to the underlying mass was approximately 4-1/2 cm in length, multilobulated. Once it was evacuated, surrounding subcutaneous tissue irrigated thoroughly and wound check for hemostasis. Small bleeders cauterized as encountered. The wound was closed with multiple interrupted vertical mattress sutures, with 3-0 Ethilon, small Marissa drain used for fluid evacuation. Patient tolerated procedure well. 4 x 4's applied. Tape applied. Patient tolerated the procedure well, rotated onto her back, then taken to the recovery room in stable condition. The physician social services assistant, Ms. Maldonado, provided assistance during this case by: Assisting retracting tissue, instillation of local anesthesia and closure of skin incisions.
[2020-09-26] MEDS ORDERED: OXYCODONE-ACETAMINOPHEN 5-325 MG TABLET ONE (12:12)
[2020-09-26 12:51] VITALS: BP 130/90
== END 2020-09-26 12:50 | disposition home or self-care (01) ==
LOC: OROUT 09:31
PROVIDERS: ATTEND Surgery
DX: L72.3 Sebaceous cyst (principal); Z01.812 Encounter for preprocedural laboratory examination; Z20.828 Contact with and (suspected) exposure to other viral communicable diseases; E11.9 Type 2 diabetes mellitus without complications; Z79.899 Other long term (current) drug therapy; Z86.73 Personal history of transient ischemic attack (TIA), and cerebral infarction without residual deficits; Z85.850 Personal history of malignant neoplasm of thyroid; D86.9 Sarcoidosis, unspecified; I10 Essential (primary) hypertension; J45.909 Unspecified asthma, uncomplicated; F17.210 Nicotine dependence, cigarettes, uncomplicated; F43.10 Post-traumatic stress disorder, unspecified; Z79.82 Long term (current) use of aspirin; Z79.84 Long term (current) use of oral hypoglycemic drugs; Z95.5 Presence of coronary angioplasty implant and graft
CPT/HCPCS: 82962; 11406; U0003; J2250; J3490 ×2; J3010; A9270; J2704; C9803; 87635